=== PATIENT | female | born 1950 | race Caucasian/White ===

== ENCOUNTER → 2018-06-23 | Outpatient (CLI) | payer MEDICARE, OTHER ==
[~2018-06-23] MED LIST: ALLEGRA ALLERGY60 MG; AUGMENTIN 875-1 EACH; CIPRO500 MG PO; CLARITIN10 MG PO; CO Q-10100 MG; FISH OIL + D31 EACH PO; FLAGYL500 MG PO; FLONASE 0.05%50 MCG NASAL; HYDROCODONE-AP1 EAC6 PO; MIRALAX17 GM PO; PRAVACHOL 20 MG20 M1 PO; PROLIA60 MG/1 ML SQ; PROTONIX40 M1 PO; REGLAN 10 MG TA10 MG PO; TRAMADOL 50 MG50 MG PO; TYLENOL325 MG PO; VIACTIV SOFT C1 EACH PO; ZOFRAN ODT4 MG PO
== END ==
LOC: M.RAD 08:55
DX: Z12.31 Encounter for screening mammogram for malignant neoplasm of breast (principal); M19.041 Primary osteoarthritis, right hand

== ENCOUNTER 2018-09-05 01:56 | Emergency (ER) | payer MEDICARE, OTHER ==
[~2018-09-05] VITALS: Ht 154.9 cm; Wt 56.7 kg
[~2018-09-05 01:56] MED LIST changes: -ALLEGRA ALLERGY60 MG; -AUGMENTIN 875-1 EACH; -CO Q-10100 MG; -REGLAN 10 MG TA10 MG PO
[2018-09-05] MEDS ORDERED: CO Q-10100 MG (02:05)
[2018-09-05] MEDS ORDERED: ALLEGRA ALLERGY60 MG (02:06)
[2018-09-05] MEDS ORDERED: AUGMENTIN 875-1 EACH (02:07)
[2018-09-05] MEDS ORDERED: ZOFRAN ODT4 MG PO (03:50)
[2018-09-05] MEDS ORDERED: REGLAN 10 MG TA10 MG PO (04:21)
[2018-09-05 04:42] VITALS: BP 120/60
== END 2018-09-05 04:44 | disposition home or self-care (01) ==
LOC: M.ERS 01:56
DX: R51 Headache (principal); K21.9 Gastro-esophageal reflux disease without esophagitis; Z88.2 Allergy status to sulfonamides; Z88.8 Allergy status to other drugs, medicaments and biological substances

== ENCOUNTER → 2019-06-24 | Outpatient (CLI) | payer MEDICARE, OTHER ==
[~2019-06-24] MED LIST changes: +ALLEGRA ALLERGY60 MG; +AUGMENTIN 875-1 EACH; +CO Q-10100 MG; +REGLAN 10 MG TA10 MG PO
== END ==
LOC: M.RAD 08:51
DX: Z12.31 Encounter for screening mammogram for malignant neoplasm of breast (principal)

== ENCOUNTER → 2020-07-02 | Outpatient (CLI) | payer MEDICARE, OTHER | LOC: M.RAD 10:10 | PROVIDERS: ATTEND Family Medicine | DX: Z12.31 Encounter for screening mammogram for malignant neoplasm of breast (principal) ==

== ENCOUNTER → 2021-07-11 | Outpatient (CLI) | payer MEDICARE, OTHER | LOC: M.RAD 10:47 | PROVIDERS: ATTEND Family Medicine | DX: Z12.31 Encounter for screening mammogram for malignant neoplasm of breast (principal); N63.11 Unspecified lump in the right breast, upper outer quadrant ==

== ENCOUNTER → 2021-07-23 | Outpatient (CLI) | payer MEDICARE, OTHER ==
--- NOTE | 2021-07-25 10:08 | PATH ---
[address] [address] PATHOLOGY RPT PROCEDURE Name: WILLRAFAELOLY Room: [facility]#: [id number] Admission: 07/23/21 Date of : 48 Discharge: Report #: [id number] Path Case #: [id number] LCA Accession Number: [id number] . 01 Material submitted: . breast - RIGHT BREAST MASS. Modifiers: right . 01 Clinical history: . US/MAMMOTOME BX/RT BREAST NODULE AREA SPANS 4.14 CM 2 MASSES 1.02 X 0.90 X 0.72 CM AND 1.07 X 1.32 X 0.82 CM MASS 1000 4CM FN COLLECTED 1448PM FORMALIN 1452PM . 02 Diagnosis: Right breast mass, 10:00, 4 cm from nipple, ultrasound-guided mammotome biopsy: - INFILTRATING DUCTAL ADENOCARCINOMA, HIGH-GRADE, SPANNING AT LEAST 10 MM. 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 SEE COMMENT. . Protocol Posting Date: April 2021 CASE SUMMARY: (INVASIVE CARCINOMA OF THE BREAST: Biopsy) . SPECIMEN . Procedure ___ Other: Ultrasound-guided mammotome biopsy . Specimen Laterality ___ Right . TUMOR . +Tumor Site ___ Clock position ___ 10 o'clock ___ Specify distance from nipple: 4 cm . Histologic Type ___ Invasive carcinoma of no special type (ductal) . Histologic Grade (Gardena Histologic Score) Glandular (Acinar) / Tubular Differentiation ___ Score 3 (less than 10% of tumor area forming glandular / tubular structures) Nuclear Pleomorphism ___ Score 3 (Vesicular nuclei, often with prominent nucleoli, [place] [address] PATHOLOGY RPT PROCEDURE Name: OLY DOMINGUEZ Room: [facility]#: [id number] Admission: 07/23/21 Date of : 48 Discharge: Report #: [id number] Path Case #: [id number] marked variation in size and shape, occasionally with very large and bizarre forms) Mitotic Rate ___ Score 2 Overall Grade ___ Grade 3 (scores of 8 or 9) . +Tumor Size ___ Greatest dimension of largest invasive focus greater than 1 mm: At least 10 mm . Ductal Carcinoma In Situ (DCIS) ___ Present Architectural Patterns ___ Comedo ___ Cribriform ___ Solid Nuclear Grade ___ Grade III (high) Necrosis ___ Present, central (expansive "comedo" necrosis) . +Lymphovascular Invasion ___ Not identified . +Microcalcifications ___ Present in DCIS . SPECIAL STUDIES . +Breast Biomarker Studies: Pending on A1 . (HYUN:pit; 07/24/2021) QTP 07/24/2021 1206 Local . 02 Comment: Approximately 75% of submitted tissues are involved with invasive neoplasm. Breast tumor profile studies are pending on A1 and will be the subject of an addendum report. Reviewed with Dr. Ramon Garza on 07/24/2021 who agrees with the diagnosis. Whit (acting [facility] Breast Navigator) notified at approximately 11:50 on 07/24/2021. (HYUN:pit; 07/24/2021) . 02 Electronically signed: . Gaudencio Crowe MD, Pathologist NPI- [id number] . 01 Gross description: [place] [address] PATHOLOGY RPT PROCEDURE Name: OLY DOMINGUEZ Room: [facility]#: [id number] Admission: 07/23/21 Date of : 48 Discharge: Report #: [id number] Path Case #: [id number] The specimen is received in formalin, labeled "Oly Dominguez, right breast mass 10:00, 4 CMFN". It consists of multiple ziegler-yellow, irregular fatty soft tissue fragments ranging from 0.2-2.4 cm in greatest dimension. The specimen is entirely submitted between sponges in A1-A4. Time removed from patient: 1448 on 07/23/2021 Time placed in formalin: 1452 on 07/23/2021 Time removed from formalin: 2340 on 07/23/2021 Total time in formalin: 8 hours 48 minutes (MRF; 07/23/2021) MFE/MFE 07/23/2021 2126 Local . 02 Pathologist provided ICD-10: C50.911, D05.11 . 02 CPT . 794367 Specimen Comment: A courtesy copy of this report has been sent to [phone] Specimen Comment: [phone] Specimen Comment: Report sent to / DR PASCUAL Specimen Comment: A duplicate report has been generated due to demographic updates. Performed at: 01 [facility] [address], [place], [place] [id number] MD Ramon Garza MD Phone: [phone] Performed at: 02 [facility] [address], [place], [place] [id number] MD Gaudencio Crowe MD Phone: [phone]
== END ==
LOC: M.ULTRA 07-19 13:00
PROVIDERS: ATTEND Family Medicine
DX: N63.10 Unspecified lump in the right breast, unspecified quadrant (principal); R92.8 Other abnormal and inconclusive findings on diagnostic imaging of breast

== ENCOUNTER → 2021-08-05 | Outpatient (CLI) | payer MEDICARE, OTHER ==
[~2021-08-05] MED LIST changes: +CLARITIN10 M3 PO; +JOINT HEALTH T1 EACH PO; +MELATONIN5 MG SL; +SKYRIZI150 MG/1 M SQ
[2021-08-05 10:59] LABS: CREATININE 1.1 mg/dL (0.6-1.3)
== END ==
LOC: M.LAB 10:28 → M.MRI 11:30
PROVIDERS: ATTEND Surgery
DX: C50.919 Malignant neoplasm of unspecified site of unspecified female breast (principal)

== ENCOUNTER → 2021-08-16 | Outpatient (CLI) | payer MEDICARE, OTHER ==
[~2021-08-16] MED LIST changes: +ULTRAM 50MG TAB50 MG PO
== END | disposition home or self-care (01) ==
LOC: M.ULTRA 12:52
PROVIDERS: ATTEND Surgery
DX: N63.10 Unspecified lump in the right breast, unspecified quadrant (principal); R92.2 Inconclusive mammogram

== ENCOUNTER → 2021-08-22 | Day surgery (SDC) | payer MEDICARE, OTHER ==
[2021-08-22 12:03] LABS: HEMATOCRIT 42.7 % (37.0-47.0); HEMOGLOBIN 14.5 gm/dL (12.0-15.0); MCH 31.5 pg (26.0-34.0); MCV 92.7 fL (80.0-100.0); MPV 8.4 fl. (7.2-11.1); RBC 4.6 mil/uL (4.20-5.00); RDW-CV 12.6 % (10.5-14.5); WBC 5.4 thou/uL (4.0-11.0)
[2021-08-22 12:10] LABS: CALCIUM 8.1 mg/dL (8.5-10.1); CREATININE 0.9 mg/dL (0.6-1.3); POTASSIUM 4.2 mmol/L (3.5-5.1)
--- NOTE | 2021-08-22 12:43 | EKG ---
[place] [address] ELECTROCARDIOGRAM REPORT Name: RUSTAM DOMINGUEZ Room: [facility]#: [id number] Admission: 08/22/21 Attend Phys: Alexia Younger, Discharge: Date of : 48 Date of Service: 08/22/21 1221 Report #: [id number] THIS REPORT FOR: //name// [facility] Test Date: 2021-08-22 Test Time: 12:21:47 Pat Name: RUSTAM DOMINGUEZ Department: Room: Gender: F Site Administrator: DANIEL : 1950 Requested By: Celeste Sweeney Order Number: [id number] Mary MD: Ugo Santos Measurements Intervals [place] Rate: 81 P: 69 [place]: 172 QRS: -49 QRSD: 86 T: 40 QT: 398 QTc: 462 Interpretive Statements Sinus rhythm Left axis deviation Compared to ECG 07/14/2017 13:23:57 No significant changes Electronically Signed On 08-22-2021 12:43:24 CDT by Ugo Santos [email or web address] <ELECTRONICALLY SIGNED> By: Ugo Santos MD, FACC 08/22/21 1243 1221 1221 Ugo Santos MD, FAC /EPI
--- NOTE | 2021-08-22 15:08 | OP ---
[address] [address] OPERATIVE REPORT Name: RUSTAM DOMINGUEZ Room: [facility] M.R.#: [id number] Admission: 08/22/21 Attend Phys: Alexia Younger DO Discharge: Date of : 48 Report #: [id number] THIS REPORT FOR: cc: Rosendo Arellano MD, Tuongvan T. MD Brock, Christie M. DO ~ DATE OF SURGERY: 08/22/2021 PREPROCEDURE DIAGNOSIS: Right breast cancer. POSTPROCEDURE DIAGNOSIS: Right breast cancer. FINDINGS: Hologic RFID tag in the right lateral breast. Nuclear medicine uptake at the nipple was 17,100. SURGEON: Alexia Younger DO CO-SURGEON: Mikhail Crowley, PGY-1. ASBESTOS WORKER HELPER: Leslye BURRIS3. OPERATION PERFORMED: Right tag guided lumpectomy and right deep axillary lymph node dissection. ANESTHESIA: LMA and local. ESTIMATED BLOOD LOSS: 10 mL. DRAINS: None. SPECIMENS: Right lumpectomy and right axillary lymph node. COMPLICATIONS: None. CONDITION: Stable. DISPOSITION: PACU to home. HISTORY OF PRESENT ILLNESS: The patient is a yolie 70-year-old female who presented to my office with a change in her mammogram. She underwent an ultrasound-guided biopsy, which revealed right breast cancer. She underwent an MRI and was seen by Oncology. She then decided to move forward with a tag guided lumpectomy and sentinel lymph node dissection. Risks and benefits were discussed in detail. The patient agreed to proceed. Prior to presenting to the OR, the patient underwent ultrasound-guided placement of an RFID tag in the right breast cancer. She also went to nuclear medicine and underwent a right [facility] [address] [place] [address] OPERATIVE REPORT Name: RUSTAM DOMINGUEZ [id number] Admission: 08/22/21 Attend Phys: Alexia Younger DO Discharge: Date of : 48 Report #: [id number] breast nuclear medicine injection. DESCRIPTION OF PROCEDURE: In preop, she underwent informed consent. She was then taken to the OR where she was laid supine on the operating room table. SCDs were placed on bilateral lower extremities. Ancef was given in the perioperative period. General LMA anesthesia was induced by anesthesia without difficulty. A 5 mL of Lymphazurin blue dye were injected in the periareolar area. Right breast and axilla were prepped and draped in the standard sterile fashion. Time-out was performed to verify the patient and procedure. We began by using the I-Shakegic probe to identify the RFID tag in the right breast. This area was marked. A curvilinear incision was marked out in this area. A 10 mL of 0.5% Marcaine were injected in the area of the planned incision. Incision was made with #15 blade. Cautery was used for hemostasis. Then, using the hologic tag as guidance, the lumpectomy specimen was formed utilizing cautery. We did carry our dissection all the way down to the pectoralis fascia as MRI had shown some concern of extension to the pectoralis. The specimen was marked in the superior and lateral direction and was placed in a transpec container and taken for mammography. Radiologist did let us know that we had both the tag and the clip and the specimen appeared to be appropriate. The breast cavity was gently packed using a moistened Ray-Miguelina. Neoprobe was brought onto the field and the nipple was interrogated and we had excellent uptake of 17,100. The axilla was interrogated and the area of the highest uptake was marked. A 10 mL of 0.5% Marcaine were injected here. Incision was made with #15 blade. Cautery was used for hemostasis. Weitlaner retractor was placed within the wound. We then gently began dissecting down through the axillary tissue using a Dana clamp until the axillary fat pad was identified. The Neoprobe was introduced into the axilla, but unfortunately we had uptake all throughout the axilla. There was no definitive area of a sentinel lymph node. Thankfully, we had an area of clear blue dye, which was tracing into the axilla straight to a lymph node. This area was gently elevated using an Allis clamp and was dissected free carefully using a combination of blunt and cautery dissection. This was then handed off as our axillary sentinel lymph node dissection. Hemostasis was assured in both of our wounds. Both wounds were copiously irrigated until clear. Surgiflo was introduced into both the cavities. Both wounds were then closed in a layered fashion using deep and superficial stitches of 3-0 Vicryl in an inverted interrupted fashion. The skin wounds were closed with running 4-0 Monocryl. A total of 30 mL of 0.5% Marcaine were used to anesthetize the wounds. Wounds were then cleansed and covered with Dermabond. The patient was then allowed to [address] [address] OPERATIVE REPORT Name: RUSTAM DOMINGUEZ Room: [facility] Fredrick#: [id number] Admission: 08/22/21 Attend Phys: Alexia Younger DO Discharge: Date of : 48 Report #: [id number] awaken from anesthesia, was extubated and transported to the recovery room with no further difficulty. Counts were correct x2 at the conclusion of the case. <ELECTRONICALLY SIGNED> By: Alexia Younger DO 08/22/21 1508 1300 1359Chshanae Younger DO /nt
--- NOTE | 2021-09-03 12:07 | PATH ---
[address] [address] PATHOLOGY RPT PROCEDURE Name: OLY DOMINGUEZ Room: [facility] M.R.#: [id number] Admission: 08/22/21 Date of : 48 Discharge: Report #: [id number] Path Case #: [id number] LCA Accession Number: [id number] . 01 Material submitted: . PART A: breast - RIGHT BREAST LUMPECTOMY: LONG STITCH=SUPERIOR SHORT=LATERAL. Modifiers: right PART B: lymph node - RIGHT AXILLARY LYMPH NODE DISSECTION. Modifiers: right, axillary tail . 01 Clinical history: . 08/22 LUMPECTOMY W/ AXILLARY NODE DISECTION RIGHT BREAST CANCER . 02 Diagnosis: A. Breast "right lumpectomy": - INVASIVE DUCTAL CARCINOMA, GRADE 3 (pT1b, pN0). - DUCTAL CARCINOMA IN SITU, NUCLEAR GRADE III - Previous biopsy site cavity. - Please see cancer case summary below. . B. Lymph nodes "right axillary dissection" (total 5 lymph nodes): - Negative for metastatic carcinoma (0/5). . CANCER CASE SUMMARY Resection specimens for invasive carcinoma of the breast Version 4.5.00 . Protocol posting date: April 2021 Standards: AJCC -UICC8 Specimen: Excision (less than total mastectomy) Specimen laterality: Right Tumor: Tumor site 10:00 4 cm from nipple Histologic type: Invasive carcinoma NOS (ductal) Histologic grade (Westbrook histologic score) Glandular (Acinar/tubular) differentiation: Score 3 (less than 10% of tumor area forming glandular/tubular structures) Nuclear pleomorphism: Score 3 (vesicular nuclei often with prominent nucleoli exhibiting marked variation in size and shape, occasionally with large and bazaar forms) Mitotic rate: Score 2 Overall grade: Grade 3 (total score 8/9) Tumor size: Greatest dimension of largest invasive focus greater than 1 mm (10 mm) Tumor focality: Single focus of invasive carcinoma Ductal carcinoma in situ: [place] [address] PATHOLOGY RPT PROCEDURE Name: OLY DOMINGUEZ Room: [facility]#: [id number] Admission: 08/22/21 Date of : 48 Discharge: Report #: [id number] Path Case #: [id number] Architectural patterns: Comedo Cribriform Solid Nuclear grade: Grade III (high) Necrosis: Present, focal Present, central Tumor extent: Not applicable Lymphovascular invasion: Not identified Dermal lymphovascular invasion: No skin present Microcalcifications: Present in DCIS Treatment effect in the breast: No know presurgical therapy Treatment effect in the lymph nodes: Not applicable Margins: All margins negative for invasive carcinoma Distance from invasive carcinoma to closest margin: 2 mm, inferior margin Margin status for DCIS: All margins negative for DCIS Distance from DCIS to closest margin: Less than 1 mm from superior margin Regional lymph nodes: Regional lymph node status: Regional lymph nodes present All regional lymph nodes negative for tumor Number of sentinel nodes examined: Not applicable Total number of lymph nodes examined: 5 Distal metastasis: Not applicable . Pathologic classification: pTNM AJCC 8th Edition TNM descriptors: Not applicable pT category: pT1b: Tumor greater than 5 mm but less than or equal to 10 mm Regional lymph node modifier: Not applicable pN category: pn0: No regional lymphg node metastasis identified. . Breast biomarker testing performed on previous biopsy ([id number]) . (MLK:pit; 08/30/2021) QTP 09/03/2021 1157 Local . 02 Comment: The case is seen in co-review with Dr. Gaudencio Crowe on 09/02/2021. He concurs with the diagnosis. . 02 Electronically signed: . Martina Guzman MD, [place] [address] PATHOLOGY RPT PROCEDURE Name: OLY DOMINGUEZ Room: [facility].#: [id number] Admission: 08/22/21 Date of : 48 Discharge: Report #: [id number] Path Case #: [id number]- [id number] . 01 Gross description: . A. Fixative: Formalin Labeled: Right breast lumpectomy, long lateral, short superior Specimen received: Oriented lumpectomy Oriented: Short superior, long lateral Weight: 47 g Dimensions: 7.3 cm anterior to posterior, 6.3 cm medial to lateral, and 2.1 cm superior to inferior . The specimen is inked as follows: superior-red inferior-blue anterior-green posterior-black lateral-orange medial-yellow . Sectioned from: Anterior to posterior Number of slices: 19 Primary lesion: 1.0 x 0.5 x 0.4 cm Primary lesion location: Slices 7 though 9 . Primary lesion to margins: 0.7 cm to superior 0.3 cm to inferior 2.1 cm to anterior 3.2 cm to posterior 2.0 cm to lateral 1.8 cm to medial . Secondary lesion: 0.6 x 0.5 x 0.5 cm Secondary lesion location: Slices 11 and 12 (0.5 cm posterior to primary lesion) . Secondary lesion to margins: 0.5 cm to superior 0.8 cm to inferior 3.0 cm to anterior 2.3 cm to posterior 2.0 cm to lateral 3.2 cm to medial . Biopsy clip: Identified in slice 9 Uninvolved breast parenchyma: Bright yellow fibrofatty . The specimen is submitted as follows: [place] [address] PATHOLOGY RPT PROCEDURE Name: OLY DOMINGUEZ Room: [facility]#: [id number] Admission: 08/22/21 Date of : 48 Discharge: Report #: [id number] Path Case #: [id number] A1 slice 1 (most anterior margin), serially sectioned A2 door to door sales representative slice 2 A3 door to door sales representative slice 3 A4 door to door sales representative slice 4 A5 door to door sales representative slice 5 A6 door to door sales representative slice 6 A7-A8 slice 7, bisected A9-A10 slice 8, bisected A11-A12 slice 9, bisected A13 door to door sales representative slice 10 A14-A16 slice 11, trisected A17-A19 slice 12, trisected A20 door to door sales representative slice 13 A21 door to door sales representative slice 14 A22 door to door sales representative slice 15 A23 door to door sales representative slice 16 A24 door to door sales representative slice 17 A25 door to door sales representative slice 18 A26-A27 slice 19 (most posterior margin), serially sectioned. . Gross photographs are taken. . The specimen is removed from the patient at 1310 and placed in formalin at 1321 on 08/22/2021. The specimen is removed from formalin at 2340 on 08/23/2021. The specimen is in formalin for greater than 6 hours and less than 72 hours. . B. The specimen is received in formalin, labeled "Oly Zareece, right axillary lymph node dissection". Received is a segment of yellow-ziegler lobulated tissue measuring 5.1 x 3.2 x 1.0 cm in greatest dimensions. Dissection and palpation of the specimen reveals five lymph nodes ranging in size from 0.4-1.8 cm in maximum dimensions. The lymph nodes are submitted entirely as follows: . B1 intact lymph nodes B2 one bisected lymph node. (CAA; 08/23/2021) QA/QAC 08/23/2021 1644 Local . 02 Pathologist provided ICD-10: C50.911, D05.11 . 02 CPT . 699844, 220291 Specimen Comment: A courtesy copy of this report has been sent to [phone] Specimen Comment: [phone] Specimen Comment: Report sent to / DR KIM Performed at: 01 [place] [address] PATHOLOGY RPT PROCEDURE Name: OLY DOMINGUEZ Room: [facility]..#: [id number] Admission: 08/22/21 Date of : 48 Discharge: Report #: [id number] Path Case #: [id number] [facility] [place] [address], [place], [place] [id number] MD Ramon Garza MD Phone: [phone] Performed at: 02 [facility] [address], [place], [place] [id number] MD Ja Mattson MD Phone: [phone]
== END | disposition home or self-care (01) ==
LOC: M.SUR 06:13
PROVIDERS: Anesthesiology; ATTEND Surgery
DX: C50.911 Malignant neoplasm of unspecified site of right female breast (principal); R59.0 Localized enlarged lymph nodes; Z98.890 Other specified postprocedural states; Z79.899 Other long term (current) drug therapy; Z88.2 Allergy status to sulfonamides; Z20.822 Contact with and (suspected) exposure to COVID-19